=== PATIENT | male | born 1980 | race Hispanic/Latino ===

== ENCOUNTER 2025-04-01 13:34 | Emergency (ER) | payer OTHER ==
[~2025-04-01] VITALS: Ht 182.9 cm; Wt 101.6 kg
[2025-04-01 13:48] VITALS: PULSE 94; RESP 18; TEMP 97.7
[2025-04-01] MEDS ORDERED: FAMOTIDINE20 MG PO (14:44)
[2025-04-01] MEDS ORDERED: ONDANSETRON ODT4 MG PO (14:44)
[2025-04-01] MEDS ORDERED: MAALOX MAXIMUM355 ML PO (14:44)
[2025-04-01] MEDS: MAGNESIUM/ALUMINUM/SIMETHICONE 30 ML UDC PO ONE (14:47)
[2025-04-01] MEDS: ONDANSETRON HCL INJ 2MG/ML 2ML 2 MG/ML VIAL IV ONE (14:47)
[2025-04-01] MEDS: LACTATED RINGER'S 1,000 ML IV ONE (14:47)
[2025-04-01] MEDS: FAMOTIDINE 20 MG/2 ML VIAL IV ONE (14:47)
[2025-04-01] MEDS: DICYCLOMINE HCL 20 MG/2 ML VIAL IM ONE (14:47)
[2025-04-01 16:05] VITALS: BP 137/68; PULSE 74; RESP 18; TEMP 98.2; O2SAT 99
== END 2025-04-01 16:07 | disposition home or self-care (01) ==
LOC: FSED 14:19
DX: R11.2 Nausea with vomiting, unspecified (principal); K52.9 Noninfective gastroenteritis and colitis, unspecified; R10.13 Epigastric pain
CPT/HCPCS: 80053; 85025; 99284; J1308; J2405; J7121